=== PATIENT | male | born 1965 | race Caucasian/White ===

== ENCOUNTER → 2017-04-26 | Outpatient (CLI) | payer OTHER | LOC: LAB 11:52 | DX: J06.9 Acute upper respiratory infection, unspecified (principal); Z88.2 Allergy status to sulfonamides ==

== ENCOUNTER → 2018-01-20 | Outpatient (CLI) | payer OTHER ==
[2018-01-20 08:13] LABS: HEMATOCRIT 46.6 % (42.0-52.0); HEMOGLOBIN 15.9 g/dL (13.5-18.0); MEAN PLATELET VOLUME 9.8 fl (7.4-10.4); RED BLOOD COUNT 5.33 M/mm3 (4.20-5.60); RED CELL DISTRIBUTION WIDTH 12.8 % (11.5-14.5); WHITE BLOOD COUNT 6.3 K/mm3 (4.8-10.8)
[2018-01-20 08:30] LABS: ALBUMIN 4.8 g/dL (3.5-5.0); CALCIUM 9.4 mg/dL (8.4-10.2); TOTAL BILIRUBIN 0.8 mg/dL (0.2-1.3); TOTAL PROTEIN 7.6 g/dL (6.3-8.2)
[2018-01-20 08:32] LABS: PH-URINE 5.5 (5.0 - 8.0); URINE APPEARANCE CLEAR; URINE BILIRUBIN NEGATIVE (NEGATIVE); URINE BLOOD NEGATIVE (NEGATIVE); URINE COLOR YELLOW; URINE GLUCOSE NEGATIVE (NEGATIVE); URINE KETONE NEGATIVE (NEGATIVE); URINE LEUKOCYTE ESTERASE NEGATIVE (NEGATIVE); URINE NITRATE NEGATIVE (NEGATIVE); URINE PROTEIN(semi-quant) NEGATIVE (NEGATIVE); URINE UROBILINOGEN NORMAL (NORMAL); URINE WBC 0-1 /hpf (0-3)
== END ==
LOC: LAB 08:02
PROVIDERS: Family Medicine
DX: Z00.00 Encounter for general adult medical examination without abnormal findings (principal)

== ENCOUNTER 2021-03-12 13:48 | Outpatient (RCR) | payer OTHER | END 2021-04-02 | disposition home or self-care (01) | LOC: PT | DX: M65.812 Other synovitis and tenosynovitis, left shoulder (principal) ==

== ENCOUNTER → 2021-03-27 | Outpatient (CLI) | payer OTHER | LOC: RAD 06:58 | DX: S46.012A Strain of muscle(s) and tendon(s) of the rotator cuff of left shoulder, initial encounter (principal) ==

== ENCOUNTER 2021-05-02 10:45 | Outpatient (RCR) | payer OTHER | END 2021-05-31 | disposition home or self-care (01) | LOC: PT | DX: M25.512 Pain in left shoulder (principal); Z98.890 Other specified postprocedural states ==

== ENCOUNTER 2021-06-01 08:26 | Outpatient (RCR) | payer OTHER | END 2021-06-01 17:00 | disposition still patient (30) | LOC: PT 08:26 | DX: M25.512 Pain in left shoulder (principal); Z96.612 Presence of left artificial shoulder joint ==

== ENCOUNTER 2021-06-04 15:30 | Outpatient (RCR) | payer OTHER | END 2021-06-30 | disposition home or self-care (01) | LOC: PT | DX: M65.812 Other synovitis and tenosynovitis, left shoulder (principal) ==

== ENCOUNTER 2021-07-04 16:02 | Outpatient (RCR) | payer OTHER | END 2021-07-31 | disposition home or self-care (01) | LOC: PT | DX: M65.812 Other synovitis and tenosynovitis, left shoulder (principal) ==

== ENCOUNTER 2021-08-02 09:04 | Outpatient (RCR) | payer OTHER | END 2021-08-30 | disposition home or self-care (01) | LOC: PT | DX: M65.812 Other synovitis and tenosynovitis, left shoulder (principal) ==